=== PATIENT | female | born 1980 | race Hispanic/Latino ===

== ENCOUNTER 2017-04-16 08:22 | Outpatient (CLI) | payer BC ==
--- NOTE | 2017-04-16 08:59 | XRay Report ---
Single view pelvis: History: Location of intrauterine device. Findings: The IUD is noted slightly to the left of midline overlying the distal sacrum at the sacrococcygeal region. Impression: Findings as detailed above.
--- NOTE | 2017-04-16 09:00 | XRay Report ---
Single view abdomen: History: Location of IUD. Findings: IUD is noted in the pelvis slightly to the left of the midline overlying the distal sacrum. Stool in colon. No bowel distention. Impression: Findings as detailed above.
== END 2017-04-16 08:23 | disposition home or self-care (01) ==
LOC: SPVIMAG 08:22
PROVIDERS: ATTEND Obstetrics & Gynecology Gynecology
DX: Z30.432 Encounter for removal of intrauterine contraceptive device (principal)
CPT/HCPCS: 72170; 74000

== ENCOUNTER 2017-05-28 08:20 | Day surgery (SDC) | payer BC ==
--- NOTE | 2017-05-26 11:22 | History and Physical Report ---
History of Present Illness Date of examination: 05/26/17 History of present illness: Patient has been reassessed/reevaluated. H&P has been reviewed. No interval changes. Patient had a failed removal / re-insertion of her Mirena due to inability to locate string. Imaging reveale IUD is intrauterine. Patient states discuused with her and Patient desires sterilization.Discuss the permanency of sterilization. High risk of regret and 0.5 to 1% risk of failure. Discussed the different risk of abdominal versus vaginal approaches Patient desires laparoscopic tubal ligation Will also perform hysteroscopic removal of IUD Vital Signs: Patient Profile: 36 Years Old Female Height: 64 inches (162.56 cm) Weight: 125 pounds BMI: 21.45 Current Method of Contraception: IUD Past History : 2 Term Births: 2 Premature Births: 0 Living Children: 2 Para: 2 Mult. Births: 0 Prev : 1 Aborta: 0 Elect. Ab: 0 Spont. Ab: 0 Ectopics: 0 # 1 Delivery date: 07/01/2009 Weeks Gestation: 40 Delivery type: Hours of labor: >12 Anesthesia type: epidural Delivery location: [facility] Sex: Female weight: 7-1 Comments: Failure of descent persistent OP position # 2 Delivery date: 01/19/2012 Weeks Gestation: 38.6 Delivery type: Anesthesia type: epidural Delivery location: [facility] Sex: female weight: 6.63 [employer] History Operations: Anal fissure (2009) (2009) (2011) Infection History HIV Risk Eval: no Active Medications (reviewed today): MIRENA (52 MG) INTRAUTERINE DEVICE (LEVONORGESTREL IUD) Current Allergies (reviewed today): VICODIN (Critical) Past Medical History: Negative Past Medical History Past Surgical History: Anal fissure (2009) (2009) (2011) Family History Summary: General Comments - FH: Family History of Diabetes Family History of Ovarian Cancer No Family History of Breast Cancer No Family History of Cervical Cancer No Family History of Colon Cancer Social History: Marital Status: Children: Occupation: [employer] Risk Factors: Smoked Tobacco Use: Never smoker Smokeless Tobacco Use: Never Drug use: no HIV high-risk behavior: no Alcohol use: yes Exercise: yes Seatbelt use: 100 % Review of Systems General Denies fever, chills, sweats, anorexia, fatigue, weakness, malaise, weight loss and sleep disorder. Complains of amenorrhea. Denies vaginal discharge, incontinence, dysuria, hematuria, urinary frequency, menorrhagia, abnormal vaginal bleeding, pelvic pain, genital sores, decreased libido, painful periods, painful sex, urinary urgency, hot flashes, vaginal dryness, vaginal itching and vaginal odor. CV Denies chest pains, palpitations, syncope, dyspnea on exertion, orthopnea, PND and peripheral edema. Resp Denies cough, dyspnea at rest, excessive sputum, hemoptysis, wheezing and pleurisy. GI Denies nausea, vomiting, diarrhea, constipation, change in bowel habits, abdominal pain, melena, hematochezia, jaundice, gas/bloating, indigestion/ heartburn, dysphagia and odynophagia. Breast Denies left breast lump, right breast lump, nipple discharge, bloody discharge from nipple, breast pain, abnormal mammogram and breast enlargement. Psych Denies depression, anxiety, irritability and mood swings. Past History Past Medical History: other (See HPI) Past Surgical History: Other (See HPI) Social history: other (See HPI) Family history: other (See HPI) Medications and Allergies Allergies Allergy/AdvReac Type Severity Reaction Status Date / Time acetaminophen [From Lortab] Allergy rash, Verified 05/26/17 14:10 itching hydrocodone [From Lortab] Allergy rash, Verified 05/26/17 14:10 itching Home Medications Medication Instructions Recorded Confirmed Last Taken Type No Known Home Medications [No 05/26/17 05/26/17 Unknown History Reported Home Medications] Review of Systems All systems: negative Exam - Physical Exam Narrative exam: HEENT: Normocephalic Skin no significant abnormal lesions or rashes Chest: respiratory effort normal, clear to auscultation Breasts: normal without skin changes or masses CV: regular, normal S1-S2, no murmur, no rub, no gallop Abdomen: normal bowel sounds; soft, nontender well healed scar Musculoskeletal: grossly normal ROM in joints, no joint tenderness or muscle weakness Neuro: no gross anomalities Extremities: no clubbing, cyanosis, or edema [employer] Exams Vulva/Vagina: normal appearance, no discharge, lesions. No evidence of cystocele or rectocele. Cervix: normal appearance, no lesions, no discharge Uterus: normal size and position, midline, mobile Adnexae: no masses or tenderness Rectovaginal: exam defered Results - Labs CBC & Chem 7: 05/28/17 09:10 Assessment and Plan - Patient Problems (1) Encounter for sterilization Current Visit: Yes Status: Acute Plan to address problem: Patient desires sterilization.Discuss the permanency of sterilization. High risk of regret and 0.5 to 1% risk of failure. Discussed the different risk of abdominal versus vaginal approaches Patient desires laparoscopic tubal ligation Discuss the risks of the surgery including infection, bleeding possibly heavy enough to require a blood transfusion, possible damage to adjacent organs. discuss of possibility of laparotomy needed. Questions answered patient agreed to proceed (2) IUD strings lost Current Visit: Yes Status: Acute Qualifiers: Encounter type: subsequent encounter Qualified Code(s): T83.32XD - Displacement of intrauterine contraceptive device, subsequent encounter (3) Encounter for IUD removal Current Visit: Yes Status: Acute Plan to address problem: Patient to have hysteroscopic removal of IUD Discussed risk of surgery including infection, bleeding and risk of perforating her uterus. Questions answered. Patient understands and desires to proceed
[~2017-05-28 08:20] MED LIST: PEPCID PO NR; VERSED IV NR
[2017-05-28] MEDS ORDERED: ZOFRAN IV PRN (09:00)
[2017-05-28 09:22] LABS: Basophils % (Auto) 0.4 % (0.0-1.8); Eosinophils % (Auto) 0.4 % (0.0-4.3); Hematocrit 41.2 % (30.3-42.9); Lymphocytes # (Auto) 1.5 K/mm3 (1.2-5.4); Lymphocytes % (Auto) 19.9 % (13.4-35.0); Mean Corpuscular HGB Conc 34 % (30-34); Mean Corpuscular Hemoglobin 31 pg (28-32); Mean Corpuscular Volume 92 fl (79-97); Monocytes # (Auto) 0.4 K/mm3 (0.0-0.8); Monocytes % (Auto) 5.6 % (0.0-7.3); Platelet Count 207 K/mm3 (140-440); Red Blood Count 4.47 M/mm3 (3.65-5.03); Red Cell Distribution Width 12.8 % (13.2-15.2)
[2017-05-28] MEDS: LACTATED RINGERS 1,000 ML IV SCH ×2 (09:22→12:20)
--- NOTE | 2017-05-28 09:50 | Anesthesia Consultation ---
Anesthesia Consult and Med Hx Date of service: 05/28/17 - Airway Anesthetic Teeth Evaluation: Good ROM Head & Neck: Adequate Mental/Hyoid Distance: Adequate Mallampati Class: Class I Intubation Access Assessment: Good - Pulmonary Exam CTA: Yes - Cardiac Exam Cardiac Exam: RRR - Pre-Operative Health Status ASA Pre-Surgery Classification: ASA2 Proposed Anesthetic Plan: General - Central Nervous System Hx Seizures: Yes (had a seizure 5 yrs ago, never discovered cause) Hx Psychiatric Problems: No - Other Systems Hx Alcohol Use: Yes (occas) Hx Cancer: No
--- NOTE | 2017-05-28 09:51 | Anesthesia Day of Surgery ---
Anesthesia Day of Surgery - Day of Surgery Patient Examined: Yes Patient H&P Reviewed: Yes Patient is NPO: Yes
[2017-05-28] MEDS ORDERED: DIPRIVAN 10 MG/ML IV ONE (10:28)
[2017-05-28] MEDS ORDERED: XYLOCAINE MPF 2% ONE (10:29)
[2017-05-28] MEDS ORDERED: DILAUDID ONE (10:29)
[2017-05-28] MEDS ORDERED: ZEMURON IV ONE (10:29)
[2017-05-28] MEDS ORDERED: MARCAINE 0.5% 30 ML INFILTRATI ONE (10:54)
[2017-05-28] MEDS ORDERED: SILVER NITRATE TP ONE (10:55)
[2017-05-28] MEDS ORDERED: ZOFRAN ONE (11:00)
[2017-05-28] MEDS ORDERED: TORADOL ONE (11:00)
[2017-05-28] MEDS ORDERED: DECADRON ONE (11:00)
[2017-05-28] MEDS ORDERED: NEOSTIGMINE ONE (11:05)
[2017-05-28] MEDS ORDERED: ROBINUL ONE (11:05)
[2017-05-28] MEDS ORDERED: MARCAINE 0.5% INFILTRATI ONE (11:12)
[2017-05-28] MEDS ORDERED: NACL 0.9% IR ONE (11:12)
--- NOTE | 2017-05-28 11:20 | Operative Report ---
Operative Report Operative Report: Pre-operative diagnosis: Patient desires permanent sterilization, also retained IUD Post-operative diagnosis: Same Procedure name(s): Laparoscopic bilateral tubal ligation with Falope-Rings with removal of the Mirena IUD Surgeon: Liang Nance MD Customer Service Advisor: RAGHU Anesthesia: General endotracheal EBL: Minimal Complications: None Findings: Patient with uterus approximately 8-10 weeks in size with normal fallopian tubes bilaterally. Mirena IUD intact Specimen(s): Mirena IUD Patient was brought in the operating room. General anesthesia was induced without difficulty. She was placed in dorsal lithotomy position. Prepped and draped in usual sterile manner. Her urinary bladder with was emptied with a red rubber catheter. Speculum placed in her vagina. Normal-appearing cervix no IUD string seen. I placed uterine forceps through the cervical os and grasped the string and IUD and easily pulled through the os. Tejeda uterine manipulator was placed for uterine manipulation. Attention was then switched to the patient's abdomen. An infra-umbilical incision was made with a scalpel. This incision was spread with a hemostat. A 5 mm trocar was placed in this incision while lifting high the abdominal wall. Intra-abdominal presence was verified directly with the laparoscope. The patient was then insufflated to approximately 3 L of CO2 gas. The patient's findings as noted above. An accessory puncture was made suprapubically. The 8 mm trocar was placed through this incision under direct visualization with no evidence of internal organ damage. Each of the fallopian tube were identified by its fimbriated end. A portion approximately 1-2 cm from each cornua was grasped with the Falope ring applicator. Falope-Rings were placed without any difficulty bilaterally. At this time all instruments were removed. The patient was deinsufflated. The skin incisions were closed subcuticular with 4-0 Vicryl. Marcaine was given subcuticularly for postoperative pain relief. The patient tolerated procedure well. She was awakened in the operating room and accompanied to the recovery room in good condition.
--- NOTE | 2017-05-28 11:21 | Short Stay Summary ---
Short Stay Documentation Date of service: 05/28/17 - History H&P: dictated Past Medical History: other (See HPI) Past Surgical History: Other (See HPI) Social history: other (See HPI) - Allergies and Medications Current Medications: Allergies acetaminophen [From Lortab] Allergy (Verified 05/26/17 14:10) rash, itching hydrocodone [From Lortab] Allergy (Verified 05/26/17 14:10) rash, itching Home Medications Medication Instructions Recorded Confirmed Last Taken Type Ibuprofen [Motrin 800 MG tab] 800 mg PO Q6H PRN #30 tablet 05/28/17 Unknown Rx Active Medications Famotidine (Pepcid) 20 mg PO PREOP NR Stop: 05/28/17 21:00 Last Admin: 05/28/17 09:21 Dose: 20 mg Lactated Ringer's (Lactated Ringers) 1,000 mls @ 75 mls/hr IV DIRECT VICKIE Last Admin: 05/28/17 09:22 Dose: 75 mls/hr Midazolam HCl (Versed) 2 mg IV PREOP NR Stop: 05/28/17 23:59 Last Admin: 05/28/17 09:51 Dose: 2 mg Morphine Sulfate (Morphine) 2 mg IV Q10MIN PRN PRN Reason: Pain, Moderate (4-6) Stop: 05/28/17 19:00 - Brief post op/procedure progress note Date of procedure: 05/28/17 (see dictated op note) - Hospital course Hospital course: Patient was admitted underwent the above him procedure without any complications. Patient will be discharged with follow-up in office in 1-2 weeks for postop check. - Disposition Condition at discharge: Good Disposition: DC-01 TO HOME OR SELFCARE - Discharge Diagnoses (1) Encounter for sterilization Status: Acute (2) IUD strings lost Status: Resolved Qualifiers: Encounter type: subsequent encounter Qualified Code(s): T83.32XD - Displacement of intrauterine contraceptive device, subsequent encounter (3) Encounter for IUD removal Status: Resolved Short Stay Discharge Plan Activity: advance as tolerated Diet: regular Follow up with: JESE ARROYO FNP-C [Primary Care Provider] - 7 Days Prescriptions: Ibuprofen [Motrin 800 MG tab] 800 mg PO Q6H PRN #30 tablet PRN Reason: Pain
[2017-05-28] MEDS: MORPHINE IV PRN ×3 (11:45→12:38)
[2017-05-28] MEDS ORDERED: MOTRIN PO SCH (13:00)
--- NOTE | 2017-05-28 13:55 | Post Anesthesia Evaluation ---
- Post Anesthesia Evaluation Patient Participated: Yes Airway Patent: Yes Stable Respiratory Function: Yes Nausea/Vomiting: No Temp > 96.8F: Yes Pain Manageable: Yes Adequeate Hydration: Yes Anesthesia Complications: No Block Receding Appropriately: Not Applicable Patient on Ventilator: No
[2017-05-28] MEDS ORDERED: MYLICON PO SCH (14:00)
[2017-05-28 16:26] VITALS: BP 91/53
== END 2017-05-28 14:05 | disposition home or self-care (01) ==
LOC: OR 08:20
PROVIDERS: ATTEND Obstetrics & Gynecology
DX: Z30.2 Encounter for sterilization (principal); T83.32XA Displacement of intrauterine contraceptive device, initial encounter; R56.9 Unspecified convulsions; Z88.8 Allergy status to other drugs, medicaments and biological substances; Z87.891 Personal history of nicotine dependence
CPT/HCPCS: 36415; 58671; 81025; 85025; 88300; J1100; J1170; J1885; J2250; J2270; J2405; J2704; J2710; J7120; 88302